=== PATIENT | male | born 1950 | race Caucasian/White ===

== ENCOUNTER 2018-05-21 10:55 | Outpatient (CLI) | payer MEDICARE, MEDICAID ==
[2018-05-21 13:40] LABS: Hemoglobin 13.9 g/dL (14.0-18.0); Mean Corpuscular HGB CONC 34.5 g/dL (32.0-36.0); Mean Corpuscular Hemoglobin 34.1 pg (27.0-31.0); Mean Platelet Volume 8.8 fL (7.4-10.4); Platelet Count 129 thou/uL (130-400); Red Blood Cell (RBC) Count 4.08 mill/uL (4.70-6.10); White Blood Cell (WBC) Count 5.5 thou/uL (4.8-10.8)
[2018-05-21 14:06] LABS: Anion Gap 15 mmol/L (10-20); BUN (Urea Nitrogen) 10 mg/dL (8.4-25.7); Calc. Creatinine Clearance 0 mL/min (70-130); Calcium 9.7 mg/dL (7.8-10.44); Carbon Dioxide 27 mmol/L (23-31); Chloride 103 mmol/L (98-107); Estimated GFR-MDRD 90; Glucose 96 mg/dL (80-115); Potassium 4.2 mmol/L (3.5-5.1); Sodium 141 mmol/L (136-145)
--- NOTE | 2018-05-22 12:46 | EKG ---
Test Reason : Blood Pressure : / mmHG Vent. Rate : 069 BPM Atrial Rate : 069 BPM P-R Int : 168 ms QRS Dur : 082 ms QT Int : 396 ms P-R-T Axes : 067 025 030 degrees QTc Int : 424 ms Normal sinus rhythm RSR' or QR pattern in V1 suggests right ventricular conduction delay Borderline ECG Confirmed by BRENDA BEJARANO ([id number]) on 05/22/2018 12:45:44 PM Referred By: ARLEEN Confirmed By:BRENDA BEJARANO
== END 2018-05-21 10:56 | disposition home or self-care (01) ==
LOC: LABBT 10:55
PROVIDERS: ATTEND Neurological Surgery
DX: Z01.818 Encounter for other preprocedural examination (principal); M54.12 Radiculopathy, cervical region
CPT/HCPCS: 80048; 85027; 93005; 93010

== ENCOUNTER 2018-05-30 05:36 | Inpatient (IN) | payer MEDICARE, MEDICAID ==
[2018-05-30] MEDS ORDERED: Sodium Chloride 0.9% 10 ML ONE (06:38)
[2018-05-30] MEDS ORDERED: CEFAZOLIN/Water 2 GM/20 ML SYRINGE ONE (07:06)
[2018-05-30] MEDS ORDERED: Fentanyl 100 MCG/2 ML VIAL ONE ×5 (07:18→11:01)
[2018-05-30] MEDS ORDERED: Ondansetron HCl/PF 4 MG/2 ML Vial IVP PRN ×2 (08:38→12:20)
[2018-05-30] MEDS ORDERED: HYDROmorphone 2 MG/ML VIAL SLOW IVP PRN (08:38)
[2018-05-30] MEDS ORDERED: Promethazine HCl 25 MG/ML VIAL SLOW IVP PRN (08:38)
[2018-05-30] MEDS ORDERED: Promethazine HCl 25 MG/ML VIAL IM PRN (08:38)
--- NOTE | 2018-05-30 08:39 | OP ---
DATE OF PROCEDURE: 05/30/2018 SURGEON: Raman Allison M.D. DEMOLITION WORKER: Trevon Gatica PA-C PROCEDURE: Anterior cervical discectomy C4-5 and C5-6, interbody arthrodesis, intravertebral biomech anical device, local morselized autograft, demineralized bone matrix, anterior titanium instrumentati on C4-C6. PROCEDURE IN DETAIL: The patient was brought to the operating room and intubated. He was positioned supine in modest extension on a gel-filled donut. Incision was made in the right precervical area a nd dissecting medial to the sternocleidomastoid muscle, identified the anterior cervical spine and ou r level was confirmed by x-ray. As anticipated, there was severe and dramatic osteophytes at C4-5 an d C5-6. The C5-6 level seemed to be auto fused. We completely debrided and removed osteophytes at b oth levels. We placed distraction across C4 through C6 and C4-5 was somewhat mobile, but C5-6 was no t. Ultimately, because I could not identify any mobile or viable disk space at C5-6, any efforts at further discectomy was aborted here. At C4-5 the disk was completely removed and the neural elements were decompressed. The bony endplates were decorticated for the purpose of arthrodesis and appropri ately sized intravertebral biomechanical PEEK device was brought into the field, filled with deminera lized bone matrix, local morselized autograft, and tapped into place securely at C4-5. Next, an ante rior plate was brought in the field and secured to C4, C5, and C6 using two 14 mm screws at each leve l. The wound was then extensively irrigated, immaculate hemostasis was secured, and the wound was cl osed in anatomic layers over a drain.
[2018-05-30] MEDS ORDERED: Acetaminophen 325 MG TAB PO PRN (12:18)
[2018-05-30] MEDS ORDERED: Acetaminophen 650 MG Suppository PR PRN (12:18)
[2018-05-30] MEDS ORDERED: Acetaminophen/Codeine 30-300mg Tablet PO PRN (12:18)
[2018-05-30] MEDS ORDERED: traMADol HCl 50 MG TAB PO PRN ×2 (12:18)
[2018-05-30] MEDS ORDERED: Morphine 4 MG/ML VIAL IV PRN (12:20)
[2018-05-30] MEDS: Acetaminophen/Codeine 30-300mg Tablet PO PRN ×3 (12:36→22:02)
[2018-05-30] MEDS ORDERED: hydrALAZINE 20 MG/ML VIAL SLOW IVP PRN (14:05)
[2018-05-30] MEDS: CEFAZOLIN/Water 2 GM/20 ML SYRINGE SLOW IVP SCH ×2 (14:43→20:01)
[2018-05-30] MEDS ORDERED: Losartan 25 MG TAB PO SCH ×2 (19:00→21:00)
--- NOTE | 2018-05-30 21:38 | PDOC.PN ---
- Subjective Encounter Start Date: 05/30/18 Encounter Start Time: 17:00 Patient seen and examined for med mngt. No new complaints. No overnight events - Objective MAR Reviewed: Yes Vital Signs & Weight: Vital Signs (12 hours) Temp Pulse Resp BP Pulse Ox 05/30/18 20:00 98 F 101 H 19 158/87 H 95 05/30/18 16:29 97.5 F L 92 18 158/88 H 94 L 05/30/18 12:09 97.4 F L 83 16 132/71 98 05/30/18 11:30 97.4 F L 83 16 05/30/18 11:20 97.6 F 87 20 142/82 H 95 Weight Weight 198 lb I&O: 05/29/18 05/30/18 05/31/18 06:59 06:59 06:59 Intake Total 1200 Output Total 10 Balance 1190 Additional Labs: Laboratory Tests 09/19/17 05/21/18 05/21/18 13:35 12:00 12:00 WBC 5.5 Hgb 13.9 L Hct 40.4 L Plt Count 129 L Sodium 141 Potassium 4.2 Creatinine 0.85 Est GFR (Non-Af Amer) 67 EKG Reviewed by me: Yes (SR) Phys Exam - Physical Examination Constitutional: NAD Respiratory: no wheezing, no rhonchi Cardiovascular: RRR, no rub Gastrointestinal: soft, non-tender, no distention, positive bowel sounds Musculoskeletal: no edema Neurological: non-focal, moves all 4 limbs Dx/Plan - Plan DVT proph w/SCDs IMPRESSION: 1. HTN 2. Dyslipidemia 3. CKD 2 4. Chronic Macrocytic Anemia PLAN: Hold HCTZ Resume Losartan at 50 mg/d Cont current meds as below Will follow. Thank you for this consultation Full code. DPOA - spouse Review of Systems - Review of Systems Respiratory: negative: Cough, Dry, Shortness of Breath, Hemoptysis, SOB with Excertion, Pleuritic Pain, Sputum, Wheezing Cardiovascular: negative: chest pain, palpitations, orthopnea, paroxysmal nocturnal dyspnea, edema, light headedness, other - Medications/Allergies Allergies/Adverse Reactions: Allergies Allergy/AdvReac Type Severity Reaction Status Date / Time No Known Allergies Allergy Verified 05/21/18 11:27 Medications: Current Medications Acetaminophen (Tylenol) 650 mg PO Q4H PRN PRN Reason: Headache/Fever or Pain(1-3) Acetaminophen (Tylenol) 650 mg MD Q4H PRN PRN Reason: Headache/Fever or Pain(1-3) Acetaminophen/Codeine Phosphate (Tylenol #3) 1 tab PO Q3H PRN PRN Reason: PAIN (1-3) Acetaminophen/Codeine Phosphate (Tylenol #3) 2 tab PO Q3H PRN PRN Reason: PAIN (4-6) Last Admin: 05/30/18 19:13 Dose: 2 tab Cefazolin Sodium (Ancef) 2 gm SLOW IVP Q8HR [facility] [place] Last Admin: 05/30/18 20:01 Dose: 2 gm Hydralazine HCl (Apresoline) 10 mg SLOW IVP Q4H PRN PRN Reason: SBP Greater Than 180 Losartan Potassium (Cozaar) 50 mg PO DAILY [facility] [place] Morphine Sulfate (Morphine) 2 mg SLOW IVP Q1H PRN PRN Reason: Moderate Breakthrough Pain Morphine Sulfate (Morphine) 4 mg IV Q1H PRN PRN Reason: SEVERE BREAKTHROUGH PAIN Ondansetron HCl (Zofran) 4 mg IVP Q6H PRN PRN Reason: Nausea/Vomiting Sodium Chloride (Flush - Normal Saline) 10 ml IVF Q12HR [facility] [place] Last Admin: 05/30/18 20:02 Dose: 10 ml Sodium Chloride (Flush - Normal Saline) 10 ml IVF PRN PRN PRN Reason: Saline Flush Tizanidine HCl (Zanaflex) 4 mg PO Q6H PRN PRN Reason: MUSCLE SPASM Tramadol HCl (Ultram) 50 mg PO Q6H PRN PRN Reason: PAIN (1-3) Tramadol HCl (Ultram) 100 mg PO Q6H PRN PRN Reason: PAIN (4-6)
[2018-05-30 23:24] VITALS: BMI 26.8
[2018-05-31] MEDS: tiZANidine HCl 4 MG TAB PO PRN ×2 (00:53→05:48)
[2018-05-31] MEDS: Acetaminophen/Codeine 30-300mg Tablet PO PRN ×3 (00:53→12:33)
[2018-05-31] MEDS: CEFAZOLIN/Water 2 GM/20 ML SYRINGE SLOW IVP SCH (05:47)
[2018-05-31 08:03] VITALS: BP 143/86; TEMP 98
[2018-05-31] MEDS ORDERED: Losartan 25 MG TAB PO SCH (09:00)
== END 2018-05-31 13:08 | disposition home or self-care (01) | DRG 473 ==
LOC: SDC 05:36 → SURG B 11:48
PROVIDERS: ADMIT Neurological Surgery; ATTEND Neurological Surgery
PROC: 0RG20A0 Fusion of 2 or more Cervical Vertebral Joints with Interbody Fusion Device, Anterior Approach, Anterior Column, Open Approach (ICD-10-PCS; principal; 2018-05-30)
PROC: 0RT30ZZ Resection of Cervical Vertebral Disc, Open Approach (ICD-10-PCS; 2018-05-30)
DX: M50.321 Other cervical disc degeneration at C4-C5 level (principal); M25.78 Osteophyte, vertebrae; I12.9 Hypertensive chronic kidney disease with stage 1 through stage 4 chronic kidney disease, or unspecified chronic kidney disease; N18.2 Chronic kidney disease, stage 2 (mild); E78.5 Hyperlipidemia, unspecified; D53.9 Nutritional anemia, unspecified; Z79.899 Other long term (current) drug therapy
CPT/HCPCS: 76001; A4216; C1713; C1776; J3010; J3490

== ENCOUNTER 2018-06-13 10:50 | Outpatient (CLI) | payer MEDICARE, MEDICAID ==
--- NOTE | 2018-06-13 11:41 | RAD ---
CERVICAL SPINE RADIOGRAPH SERIES 3 VIEWS: Date: 06/13/18 CLINICAL HISTORY: Status post neck surgery, cervical stenosis of spine. FINDINGS: ACDF hardware spans C4-C6. There is an intervening disc space prosthesis at C4-5. No hardware complic ation is evident on the provided views. Multilevel moderate degenerative change present. Lateral mass es of C1 appropriately align. IMPRESSION: Postoperative cervical spine with multilevel degenerative change. No obvious hardware complication. POS: [facility]
== END 2018-06-13 10:51 | disposition home or self-care (01) ==
LOC: TBSIIMAG 10:50
PROVIDERS: ATTEND Neurological Surgery
DX: M48.02 Spinal stenosis, cervical region (principal); M47.892 Other spondylosis, cervical region; Z98.890 Other specified postprocedural states
CPT/HCPCS: 72040

== ENCOUNTER 2018-08-02 15:11 | Outpatient (CLI) | payer MEDICARE, MEDICAID ==
--- NOTE | 2018-08-02 15:50 | RAD ---
CERVICAL SPINE AP AND LATERAL STANDARD 08/02/18 HISTORY: Surgical followup. COMPARISON: Radiograph 06/13/18. FINDINGS: The ACDF hardware is present at C4-C6 with discectomy changes at C4-5. This is similar to the compari son examination. No migration of the discectomy spacer. Open mouth odontoid view is normal. Moderate narrowing at C3-4 disc space as well as the C6-7 disc space. IMPRESSION: Unchanged satisfactory postoperative appearance. POS: [facility]
== END 2018-08-02 15:12 | disposition home or self-care (01) ==
LOC: TBSIIMAG 15:11
PROVIDERS: ATTEND Neurological Surgery
DX: M50.30 Other cervical disc degeneration, unspecified cervical region (principal); Z98.1 Arthrodesis status
CPT/HCPCS: 72040

== ENCOUNTER 2020-02-11 10:37 | Outpatient (CLI) | payer MEDICARE ==
--- NOTE | 2020-02-11 11:51 | RAD ---
CERVICAL SPINE 4 VIEWS: HISTORY: Cervical stenosis. Neck pain. FINDINGS: Previous anterior fusion procedures noted. Anterior plate and screws transfix C4, C5, and C6. Inter body implant at C4-5 shows some anterior displacement. There is loss of disk space at C5-6 and C6-7. There is a posterior listhesis at C4-5 and C5-6 with posterior spondylosis at these levels. The po sterior listhesis at these levels does not appear to significantly change with flexion or extension. IMPRESSION: Degenerative and postoperative changes of cervical spine. POS: [facility]
== END 2020-02-11 10:38 | disposition home or self-care (01) ==
LOC: BICRAD 10:37
PROVIDERS: ATTEND Neurological Surgery
DX: M48.02 Spinal stenosis, cervical region (principal); M47.812 Spondylosis without myelopathy or radiculopathy, cervical region; Z98.1 Arthrodesis status
CPT/HCPCS: 72050

== ENCOUNTER 2020-03-07 11:11 | Emergency (ER) | payer MEDICARE, MEDICAID ==
[2020-03-07] MEDS ORDERED: predniSONE 20 MG TAB ONE (12:21)
[2020-03-07] MEDS ORDERED: diphenhydrAMINE 25 MG CAP ONE (12:21)
== END 2020-03-07 12:50 | disposition home or self-care (01) ==
LOC: ERS 11:11
DX: T63.481A Toxic effect of venom of other arthropod, accidental (unintentional), initial encounter (principal); E78.5 Hyperlipidemia, unspecified; E78.00 Pure hypercholesterolemia, unspecified; I10 Essential (primary) hypertension; Z79.899 Other long term (current) drug therapy; Z79.82 Long term (current) use of aspirin
CPT/HCPCS: 99282; J7512; Q0163

== ENCOUNTER 2020-12-09 17:41 | Emergency (ER) | payer MEDICARE, MEDICAID ==
[~2020-12-09 17:41] MED LIST: Iopamidol-370 76% 500 ML 1 ML ONE
[2020-12-09 18:27] LABS: #Lymphocytes 0.9 thou/uL (1.20-3.40); #Monocytes 0.6 thou/uL (0.11-0.59); #Neutrophils 5.6 thou/uL (1.40-6.50); %Basophils 0.2 % (0.0-1.0); %Eosinophils 0.2 % (0.0-10.0); %Lymphocytes 12.8 % (21.0-51.0); %Monocytes 8.6 % (0.0-10.0); %Neutrophils 78.1 % (42.0-75.0); Hemoglobin 15.6 g/dL (14.0-18.0); Mean Corpuscular Hemoglobin 30.7 pg (27.0-31.0); Mean Platelet Volume 8.1 fL (7.4-10.4); Platelet Count 168 thou/uL (130-400); RBC Distribution Width 12.9 % (11.5-14.5); Red Blood Cell (RBC) Count 5.07 mill/uL (4.70-6.10); White Blood Cell (WBC) Count 7.2 thou/uL (4.8-10.8)
[2020-12-09 18:48] LABS: ALT (SGPT) 35 U/L (8-55); AST (SGOT) 34 U/L (5-34); Albumin 4.7 g/dL (3.4-4.8); Alkaline Phosphatase 114 U/L (40-110); Anion Gap 18 mmol/L (10-20); BUN (Urea Nitrogen) 17 mg/dL (8.4-25.7); Bilirubin, Total 1.2 mg/dL (0.2-1.2); Calc. Creatinine Clearance 0 mL/min (70-130); Calcium 9.1 mg/dL (7.8-10.44); Carbon Dioxide 25 mmol/L (23-31); Chloride 99 mmol/L (98-107); Globulin 3.2 g/dL (2.4-3.5); Glucose 109 mg/dL (80-115); Potassium 3.7 mmol/L (3.5-5.1); Protein, Total 7.9 g/dL (5.8-8.1); Sodium 138 mmol/L (136-145)
[2020-12-09] MEDS ORDERED: Acetaminophen 500 MG TAB ONE (19:41)
[2020-12-09] MEDS ORDERED: Ketorolac Tromethamine 30 MG/ML VIAL ONE (19:41)
[2020-12-09 22:23] LABS: SARS-CoV-2 NAA Rapid Test DETECTED (NotDetected)
== END 2020-12-09 23:01 | disposition home or self-care (01) ==
LOC: ERS 17:41
DX: U07.1 COVID-19 (principal); J12.82 Pneumonia due to coronavirus disease 2019; I10 Essential (primary) hypertension; E78.5 Hyperlipidemia, unspecified; E78.00 Pure hypercholesterolemia, unspecified; Z79.82 Long term (current) use of aspirin; Z79.899 Other long term (current) drug therapy
CPT/HCPCS: 0240U; 71046; 71275; 80053; 84484; 85025; 93005; 96374; 99285; 36415; J1885; Q9967

== ENCOUNTER 2021-07-06 08:16 | Outpatient (CLI) | payer MEDICARE, MEDICAID, OTHER | END 2021-07-06 08:17 | disposition home or self-care (01) | LOC: BICRAD 08:16 | PROVIDERS: ATTEND Internal Medicine Critical Care Medicine | DX: R06.00 Dyspnea, unspecified (principal) | CPT/HCPCS: 71046 ==

== ENCOUNTER 2022-06-10 08:48 | Outpatient (CLI) | payer MEDICARE, MEDICAID | END 2022-06-10 08:49 | disposition home or self-care (01) | LOC: LABBT 08:48 | PROVIDERS: ATTEND Family Medicine | DX: Z20.822 Contact with and (suspected) exposure to COVID-19 (principal) | CPT/HCPCS: 87811 ==

== ENCOUNTER 2022-06-13 07:55 | Outpatient (CLI) | payer MEDICARE, MEDICAID | END 2022-06-13 07:56 | disposition home or self-care (01) | LOC: RAD 07:55 | PROVIDERS: ATTEND Student in an Organized Health Care Education/Training Program | DX: R13.12 Dysphagia, oropharyngeal phase (principal); R63.30 Feeding difficulties, unspecified | CPT/HCPCS: 74230 ==

== ENCOUNTER 2022-07-12 17:00 | Outpatient (CLI) | payer MEDICARE, MEDICAID | END 2022-07-12 17:01 | disposition home or self-care (01) | LOC: SLEEPLAB 17:00 | PROVIDERS: ATTEND Physician Assistant Surgical | DX: G47.33 Obstructive sleep apnea (adult) (pediatric) (principal); R53.83 Other fatigue; R06.83 Snoring; G47.10 Hypersomnia, unspecified; I25.10 Atherosclerotic heart disease of native coronary artery without angina pectoris; I10 Essential (primary) hypertension; G47.00 Insomnia, unspecified; R13.10 Dysphagia, unspecified; E66.9 Obesity, unspecified; Z68.27 Body mass index [BMI] 27.0-27.9, adult | CPT/HCPCS: 95810 ==

== ENCOUNTER 2022-10-20 09:57 | Outpatient (CLI) | payer OTHER | END 2022-10-20 09:58 | disposition home or self-care (01) | LOC: RAD 09:57 | PROVIDERS: ATTEND Internal Medicine Critical Care Medicine | DX: R06.00 Dyspnea, unspecified (principal) | CPT/HCPCS: 71046 ==

== ENCOUNTER 2023-07-10 08:00 | Outpatient (CLI) | payer OTHER, MEDICAID ==
[2023-07-10] MEDS ORDERED: Iopamidol 370 76% 100 ML VIAL ONE (08:57)
== END 2023-07-10 08:01 | disposition home or self-care (01) ==
LOC: CT 08:00
PROVIDERS: ATTEND Family Medicine Sports Medicine
DX: R10.84 Generalized abdominal pain (principal)
CPT/HCPCS: 74177; 82565; Q9967

== ENCOUNTER 2023-08-16 05:45 | Day surgery (SDC) | payer OTHER, MEDICAID ==
[2023-08-08 08:22] VITALS: BMI 28.4
[2023-08-16] MEDS ORDERED: fentaNYL PF 100 MCG/2 ML SYRINGE ONE (06:15)
[2023-08-16] MEDS ORDERED: EPINEPHrine 1 MG/ML AMP ONE (06:42)
[2023-08-16] MEDS ORDERED: Bupivacaine 0.25% HCL 30 ML VIAL ONE (06:42)
[2023-08-16] MEDS ORDERED: CEFAZOLIN 2 GM VIAL ONE (06:53)
[2023-08-16] MEDS ORDERED: Sodium Chloride 0.9% 100 ML ONE (06:54)
[2023-08-16] MEDS ORDERED: Midazolam HCl 2 mg/2 ml Vial ONE (07:10)
[2023-08-16] MEDS ORDERED: Rocuronium Bromide 10 MG/ML (10ML VIAL) ONE (07:31)
[2023-08-16] MEDS ORDERED: NEOSTIGMINE 3 MG/3 ML SYR 3 MG/3 ML SYRINGE ONE (07:31)
[2023-08-16] MEDS ORDERED: Ondansetron PF 4 MG/2 ML Vial ONE (07:31)
[2023-08-16] MEDS ORDERED: PROPOFOL 200 MG/20 ML VIAL ONE (07:31)
[2023-08-16] MEDS ORDERED: PHENYLEPHRINE-NS 100 MCG/ML 10 ML SYRINGE ONE (07:31)
[2023-08-16] MEDS ORDERED: Lidocaine 1% PF 5 ML VIAL ONE (07:31)
[2023-08-16] MEDS ORDERED: Glycopyrrolate 0.2 MG/ML 5 ML SYRINGE ONE (07:31)
[2023-08-16] MEDS ORDERED: Dexamethasone 20 MG/5 ML VIAL ONE (07:31)
[2023-08-16] MEDS ORDERED: HYDROcodone/Acetaminophen 5/325 mg Tablet ONE (09:52)
== END 2023-08-16 10:20 | disposition home or self-care (01) ==
LOC: SDC 05:45
PROVIDERS: ATTEND Surgery
PROC: 0WUF4JZ Supplement Abdominal Wall with Synthetic Substitute, Percutaneous Endoscopic Approach (ICD-10-PCS; principal; 2023-08-16)
DX: K42.9 Umbilical hernia without obstruction or gangrene (principal); I10 Essential (primary) hypertension; E78.5 Hyperlipidemia, unspecified; I25.10 Atherosclerotic heart disease of native coronary artery without angina pectoris; Z79.899 Other long term (current) drug therapy
CPT/HCPCS: C1781; J0171; J1100; J2250; J2405; J2704; J3490; S0020